=== PATIENT | male | born 1995 | race American Indian/Alaskan Native ===

== ENCOUNTER 2018-07-04 00:05 | Emergency (ER) | payer OTHER ==
[2018-07-04 00:28] VITALS: BP 117/65
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
== END 2018-07-04 04:00 | disposition left against medical advice (07) ==
LOC: ED 00:05
DX: M54.2 Cervicalgia (principal); V89.2XXA Person injured in unspecified motor-vehicle accident, traffic, initial encounter; Y93.89 Activity, other specified; Y92.488 Other paved roadways as the place of occurrence of the external cause; Y99.8 Other external cause status; Z53.21 Procedure and treatment not carried out due to patient leaving prior to being seen by health care provider
CPT/HCPCS: 72040